=== PATIENT | male | born 1960 | race Caucasian/White ===

== ENCOUNTER 2018-09-06 13:58 | Emergency (ER) | payer MEDICAID ==
--- NOTE | 2018-09-06 14:45 | Emergency Department Record ---
History of Present Illness - General Chief complaint: Pain Stated complaint: BOTH LEG PAIN Time Seen by Provider: 09/06/18 14:33 Source: Patient Mode of Arrival: Wheelchair Limitations: No limitations - History of Present Illness Initial comments: The patient is here due to a hx of chronic leg pain. He now states the pain has been worse over the last 4 days. The patient denies any injury, trauma, fever, chills, or running out of any medicines. He does take multiple chronic pain medicines. The patient does have a doctor in [place] but just moved here to ER 3 days ago. MD Complaint: Extremity pain -: Year(s) Location: Bilateral, Lower Leg Radiation: None Severity scale (1-10): 8 Quality: Burning Consistency: Constant Improves with: Nothing Worsens with: Nothing Associated Symptoms: Denies other symptoms - Related Data Home Medications Medication Instructions Recorded Confirmed Last Taken Albuterol Sulfate [Ventolin Hfa] 1 - 2 puff IH .EVERY 4-6 HOURS PRN 09/06/1803/17 Unknown Diazepam [Valium] 7.5 mg PO Q8H 09/06/18 09/06/18 Unknown Fentanyl [Duragesic] 75 mcg TD Q72H 09/06/18 09/06/18 Unknown Haloperidol [Haldol] 1 mg PO Q8H 09/06/18 09/06/18 Unknown Ipratropium/Albuterol Sulfate 2 puff INH QID 09/06/18 09/06/18 Unknown [Combivent] Ondansetron HCl [Zofran] 8 mg PO Q8H PRN 09/06/18 09/06/18 Unknown Allergies Allergy/AdvReac Type Severity Reaction Status Date / Time diphenhydramine Allergy DIFFICULTY Verified 09/06/18 14:29 [From Benadryl] BREATHING ketorolac [From Toradol] Allergy DIFFICULTY Verified 09/06/18 14:29 BREATHING Travel Screening - Travel/Exposure Within Last 30 Days Have you traveled within the last 30 days?: No Review of Systems Constitutional: Denies: Chills, Fever Eyes: Denies: Eye discharge ENT: Denies: Congestion Respiratory: Denies: Cough, Dyspnea Past Medical History - SOCIAL HISTORY Smoking Status: Current every day smoker Alcohol Use: None Drug Use Detail:: Marijuana - RESPIRATORY Hx Respiratory Disorders: Yes Hx COPD: Yes (copd) - CARDIOVASCULAR Hx Cardio Disorders: Yes Hx Heart Attack: Yes (x 5) - NEURO Hx Neuro Disorders: Yes Hx Headaches: Yes Hx Seizures: Yes (was in coma) - GI Hx GI Disorders: Yes Comment:: stomach - Hx Genitourinary Disorders: Yes Hx Kidney Stones: Yes - ENDOCRINE Hx Endocrine Disorders: No - MUSCULOSKELETAL Hx Musculoskeletal Disorders: Yes - PSYCH Hx Psych Problems: Yes Hx Anxiety: Yes Hx Depression: Yes - HEMATOLOGY/ONCOLOGY Hx Hematology/Oncology Disorders: Yes Hx Cancer: Yes (stomach) Family Medical History Any Significant Family History?: No Physical Exam - General General Appearance: Alert, Oriented x3, Cooperative, No acute distress - Head Head exam: Atraumatic, Normocephalic - Neck Neck exam: Normal inspection, Full ROM. negative: Tenderness - Respiratory Respiratory exam: Normal lung sounds bilaterally. negative: Respiratory distress - Cardiovascular Cardiovascular Exam: Regular rate, Normal rhythm, Normal heart sounds - GI/Abdominal GI/Abdominal exam: Soft, Normal bowel sounds. negative: Tenderness - Extremities Extremities exam: Full ROM, Tenderness (There is exquisite tenderness with just light touch to the skin bilaterally. The legs have normal pulses, no edema, and normal capillary refill.). negative: Normal inspection (There are patches bilaterally of dry skin but no swelling, bruising, erythema or warmth. ), Joint swelling - Neurological Neurological exam: Abnormal gait (Chronic.), Alert, Oriented X3. negative: Altered, Normal gait - Skin Skin exam: Rash (The patient did have dry eczematous patches to the skin of both legs.) Course Vital Signs 09/06/18 14:18 Temperature 97.6 F Pulse Rate 61 Respiratory 18 Rate Blood Pressure 133/92 Pulse Ox 97 - Reevaluation(s) Reevaluation #1: I did explain to the patient that I do not see any acute medical issue at this time. The patient clearly has chronic leg pain and I do not feel it is appropriate for me to add new medicines to his longstanding chronic medical regimen. I did instruct him to use HC cream to the dry areas which he can purchase OTC. 09/06/18 14:48 Disposition Disposition: Discharge Clinical Impression: Chronic pain disorder Disposition: Home, Self-Care Condition: (2) Stable Instructions: Chronic Pain (ED) Additional Instructions: The patient did not wait for discharge instructions and left the ED after I did discuss the plan with him. Time of Disposition: 14:50 Quality - Quality Measures Quality Measures: N/A - Blood Pressure Screening View Details: Yes Does Patient Have Any of the Following: No Blood Pressure Classification: Hypertensive Reading Systolic Measurement: 133 Diastolic Measurement: 92 Screening for High Blood Pressure: < First Hypertensive BP, F/U Documented > [ G8950] First Hypertensive Follow-up Interventions: Referral to alternative/primary care provider.
== END 2018-09-06 14:50 | disposition home or self-care (01) ==
LOC: ER 13:58
DX: G89.29 Other chronic pain (principal); M79.662 Pain in left lower leg; M79.661 Pain in right lower leg; J44.9 Chronic obstructive pulmonary disease, unspecified; I25.2 Old myocardial infarction; F17.210 Nicotine dependence, cigarettes, uncomplicated
CPT/HCPCS: 99282

== ENCOUNTER 2018-09-26 16:44 | Emergency (ER) | payer MEDICAID ==
--- NOTE | 2018-09-26 16:59 | Emergency Department Record ---
History of Present Illness - General Stated Complaint: NOT RESPONDING Time Seen by Provider: 09/26/18 16:48 Source: EMS Mode of Arrival: EMS Limitations: Altered mental status - History of Present Illness Initial Comments: 57 yo male presents by EMS for altered mental status. Per EMS the accu check was greater than 200. He was found to have two Fentanyl patches on his skin. Narcan was given due to the fact that he was unresponsive. He became agitated at this point. He has been non verbal with EMS and on arrival in the ED. The fiance states that Carlos has not really been up since yesterday. He did have some conversation this morning. She has not been able to wake him since noon today. EMS presents with paperwork signed that Carlos is DNR. He has a history of lung cancer. Per his fiance he is under the care of palliative care and his PCP. The fiance and cousin otherwise are unsure of his exact diagnosis or prognosis. The fiance states he did see his doctor earlier this week and his valium dosing was increased. They are unaware of fevers, vomiting, diarrhea, rashes, or other abrupt changes in his health. The fiance states a real change in his behavior started over the week after the medication changes. 325ml of Valium is missing from 500ml Rx from 09/19/18. He is written for 5ml BID. He should have only used about 70ml in this time period The patient's DNR form states DNR with comfort care only MD Complaint: Altered mental status -: Hour(s) (minimum of 5 hours) Severity: Severe Consistency: Constant Context: Other Associated Symptoms: Denies other symptoms - [place] Coma Scale Eye Response: (2) Open to pain Motor Response: (5) Localizes to pain Verbal Response: (4) Confused conversation [place] Total: 11 - Related Data Allergies Allergy/AdvReac Type Severity Reaction Status Date / Time diphenhydramine Allergy DIFFICULTY Verified 09/06/18 14:29 [From Benadryl] BREATHING ketorolac [From Toradol] Allergy DIFFICULTY Verified 09/06/18 14:29 BREATHING Review of Systems ROS unobtainable: Due to mental status Past Medical History - SOCIAL HISTORY Smoking Status: Current every day smoker Drug Use Detail:: Marijuana - RESPIRATORY Hx Respiratory Disorders: Yes Hx COPD: Yes (copd) - CARDIOVASCULAR Hx Cardio Disorders: Yes Hx Heart Attack: Yes (x 5) - NEURO Hx Neuro Disorders: Yes Hx Headaches: Yes Hx Seizures: Yes (was in coma) - GI Hx GI Disorders: Yes Comment:: stomach - Hx Genitourinary Disorders: Yes Hx Kidney Stones: Yes - ENDOCRINE Hx Endocrine Disorders: No - MUSCULOSKELETAL Hx Musculoskeletal Disorders: Yes - PSYCH Hx Psych Problems: Yes Hx Anxiety: Yes Hx Depression: Yes - HEMATOLOGY/ONCOLOGY Hx Hematology/Oncology Disorders: Yes Hx Cancer: Yes (stomach) Physical Exam - General General Appearance: Mild distress, Other (Non verbal, shaking, moves all extremities spontaneously) Limitations: Altered mental status - Head Head exam: Atraumatic, Normocephalic, Normal inspection - Eye Eye exam: PERRL, Other (roving). negative: Conjunctival injection - ENT ENT exam: negative: Normal exam Nasal Exam: negative: Normal inspection Mouth exam: negative: Normal external inspection - Respiratory Respiratory exam: Accessory muscle use, Prolonged expiratory, Rhonchi - Cardiovascular Cardiovascular Exam: Regular rate, Normal rhythm, Normal heart sounds - GI/Abdominal GI/Abdominal exam: Soft, Normal bowel sounds, Other (scars on the abdomen). negative: Tenderness - Rectal Rectal exam: Deferred - exam: Deferred - Extremities Extremities exam: Normal inspection - Neurological Neurological exam: Altered - Psychiatric Psychiatric exam: Agitated, Anxious - Skin Skin exam: Dry, Intact, Normal color, Warm Course - Reevaluation(s) Reevaluation #1: Carlos has a signed DNR form He current has oxygen saturations of 100. A nasal trumpet was placed He has moderate oral secretions. RT at bedside suctioning His cousin and fiance confirm DNR At this point he is clearing his secretions but requires some assistance 09/26/18 17:05 The Fentanyl patches had been removed by EMS 09/26/18 17:06 09/26/18 17:11 A burnham was placed. The patient now able to say his name "Carlos" 09/26/18 17:12 The EMR was reviewed. The patient moved to [place] this month. This is his second visit. His doctors are in [place] 09/26/18 17:26 EKG #1: 17:21 Rate: 94 Rhythm: sinus [place]: normal Intervals: normal ST segments: normal Prior: none 09/26/18 17:49 Labs were reviewed On the CBC the WBC is 14 The CMP CR is 1.5 Lactic Acid 5.9 Troponin is 0.029 ABG 7.30, pO2 86, FiO2 97, pCO2 44 09/26/18 17:52 UA is negative The CXR was reviewed. No infiltrate or obvious aspiration. 09/26/18 17:54 Carlos is making eye contact and responds appropriately with "yes" and "no" 09/26/18 17:58 HR 99 BP 122/60 Saturation 95% RR 28 [facility] Contacted for transfer. Medical Decision Making - Lab Data Result diagrams: 09/26/18 17:00 09/26/18 17:00 Disposition Disposition: Transfer Clinical Impression: Medication overdose Qualifiers: Encounter type: initial encounter Injury intent: accidental or unintentional Qualified Code(s): T50.901A - Poisoning by unspecified drugs, medicaments and biological substances, accidental (unintentional), initial encounter Disposition: Acute Care Hospital Transfer Transfer To: [facility] Reason For Transfer: Valium, Fentanyl OD Accepting Physician: Juanjo Time Discussed w/Accepting Physician: 18:12 Condition: (3) Guarded Forms: Patient Portal Access Time of Disposition: 17:55 Quality - Quality Measures Quality Measures: N/A - Blood Pressure Screening Does Patient Have Any of the Following: No Blood Pressure Classification: Pre-Hypertensive BP Reading Systolic Measurement: 141 Diastolic Measurement: 85 Screening for High Blood Pressure: < Pre-Hypertensive BP, F/U Documented > [ G8950] Pre-Hypertensive Follow-up Interventions: Referral to alternative/primary care provider.
[2018-09-26 17:15] LABS: HEMATOCRIT 48.5 % (42.0-52.0); HEMOGLOBIN 14.9 gm/dl (14.0-18.0); MEAN CELL VOLUME 100.8 fl (81-97); MEAN CORPUSCULAR HGB CONC 30.7 g/dl (32-36); MEAN PLATELET VOLUME 11.7 fl (7.4-10.4); PLATELET COUNT 191 K/uL (130-400); RED BLOOD COUNT 4.81 M/uL (4.40-5.70); RED CELL DISTRIBUTION WIDTH 13.6 % (11.5-14.5); WHITE BLOOD COUNT W/O DIFF 14.6 K/uL (4.2-12.2)
[2018-09-26 17:24] LABS: URINE APPEARANCE CLEAR; URINE BILIRUBIN NEGATIVE (NEGATIVE); URINE BLOOD NEGATIVE (NEGATIVE); URINE COLOR YELLOW; URINE GLUCOSE (UA) NEGATIVE (NEGATIVE); URINE KETONE NEGATIVE (NEGATIVE); URINE LEUKOCYTE ESTERASE NEGATIVE (NEGATIVE); URINE NITRITE NEGATIVE (NEGATIVE); URINE PROTEIN NEGATIVE (NEGATIVE)
[2018-09-26 17:25] LABS: ARTERIAL BLOOD GAS BASE EXCESS -5.2 mmol/L (-2 - 3); ARTERIAL BLOOD GAS HCO3 20.7 mmol/L (18-23); O2 HEMOGLOBIN 90.4 % vol (94-99); TOTAL HEMOGLOBIN 13.5 g/dl (14-18)
[2018-09-26 17:26] LABS: METHEMOGLOBIN -0.1 % (0.0-1.5)
[2018-09-26 17:27] LABS: ALLEN TEST PASS
[2018-09-26 17:28] LABS: PARTIAL THROMBOPLASTIN TIME 24.4 SECONDS (24.5-39.1); PROTHROMBIN TIME (PATIENT) 10.3 SECONDS (9.5-12.1)
[2018-09-26 17:29] LABS: BILIRUBIN,TOTAL 0.2 mg/dL (0.2-1.0); CREATININE 1.5 mg/dL (0.7-1.2); TOTAL PROTEIN 7.6 g/dL (6.6-8.7)
[2018-09-26 17:34] LABS: ALB/GLOB RATIO 1.2 (1.1-1.8); ALBUMIN 4.1 g/dL (4.0-5.0)
[2018-09-26] MEDS: 0.9 % SODIUM CHLORIDE 1,000 ML BAG IV ONE (18:31)
[2018-09-26 18:32] LABS: AMPHETAMINE SCREEN URINE NOT DETECTED; BARBITURATE SCREEN URINE NOT DETECTED; BENZODIAZEPINE SCREEN URINE DETECTED; COCAINE SCREEN URINE NOT DETECTED; METHADONE SCREEN URINE NOT DETECTED; METHAMPHETAMINE SCREEN NOT DETECTED; OPIATE SCREEN URINE NOT DETECTED; OXYCODONE SCREEN URINE NOT DETECTED; PHENCYCLIDINE SCREEN URINE NOT DETECTED; PROPOXYPHENE SCREEN URINE NOT DETECTED; THC SCREEN URINE DETECTED; TRICYCLIC ANTIDEPRESSANT SCRN NOT DETECTED
--- NOTE | 2018-09-28 16:37 | RADIOLOGY REPORT ---
EXAM: CHEST 1 VIEW HISTORY: DECREASED LEVEL OF AWARENESS. UNRESPONSIVE. TECHNIQUE: Single mobile frontal view of the chest is obtained. COMPARISON: None. FINDINGS: The heart projects borderline enlarged. No definite pulmonary venous hypertension. No lung consolidation. There is possible minimal patchy airspace disease in each lung base consistent with atelectasis or less likely infiltrate. The lungs and pleural spaces are otherwise clear. IMPRESSION: 1. LIMITED PORTABLE EXAMINATION. 2. BORDERLINE CARDIOMEGALY WITHOUT GROSS PULMONARY VENOUS HYPERTENSION. 3. POSSIBLE MINIMAL PATCHY OPACITY IN EACH LUNG BASE CONSISTENT WITH ATELECTASIS OR LESS LIKELY INFILTRATE. JOB NUMBER: [id number] [facility]
== END 2018-09-26 19:04 | disposition short-term general hospital (02) ==
LOC: ER 16:44
DX: T42.4X1A Poisoning by benzodiazepines, accidental (unintentional), initial encounter (principal); T40.4X1A Poisoning by other synthetic narcotics, accidental (unintentional), initial encounter; J44.9 Chronic obstructive pulmonary disease, unspecified; I25.2 Old myocardial infarction; F17.210 Nicotine dependence, cigarettes, uncomplicated; Y92.009 Unspecified place in unspecified non-institutional (private) residence as the place of occurrence of the external cause; Z85.118 Personal history of other malignant neoplasm of bronchus and lung
CPT/HCPCS: 36600; 71045; 80053; 80305; 81003; 82375; 82803; 83605; 84484; 85027; 85610; 85730; 93005; 93010; 99285; J7030